=== PATIENT | female | born 1965 | race Caucasian/White ===

== ENCOUNTER 2021-03-24 08:51 | Outpatient (CLI) | payer BC, SELFPAY ==
--- NOTE | 2021-03-24 09:01 | ECG_ITS ---
Measurements Intervals [place] Rate: 63 P: 36 WA: 181 QRS: 54 QRSD: 80 T: 53 QT: 397 QTc: 407 Interpretive Statements SINUS RHYTHM DELAYED PRECORDIAL R/S TRANSITION BASELINE ARTIFACT- I, II, III, AVR, AVL, V5-V6 BORDERLINE ECG Electronically Signed On 03-24-2021 10:17:49 CDT by Jimy Chou D.O.
[2021-03-24 09:48] LABS: Hematocrit 38.5 % (37.0-47.0); Hemoglobin 12.7 g/dL (12.0-15.0)
== END 2021-03-24 08:52 | disposition home or self-care (01) ==
PROVIDERS: PCP Family Medicine; Visit Provider Obstetrics & Gynecology
DX: Z01.818 Encounter for other preprocedural examination (principal); N95.0 Postmenopausal bleeding
CPT/HCPCS: 36415; 85014; 85018; 93005

== ENCOUNTER → 2021-03-26 08:13 | Outpatient (CLI) | payer BC, SELFPAY ==
[2021-03-26 19:22] LABS: SARS-CoV-2 RNA PCR Negative
== END ==
PROVIDERS: PCP Family Medicine; Visit Provider Obstetrics & Gynecology
DX: Z01.812 Encounter for preprocedural laboratory examination (principal); Z20.822 Contact with and (suspected) exposure to COVID-19
CPT/HCPCS: C9803; U0003; U0005

== ENCOUNTER 2021-03-29 01:30 | Day surgery (SDC) | payer BC, SELFPAY ==
[2021-03-19 15:02] VITALS: BMI 29.2
--- NOTE | 2021-03-23 13:13 | PM.IMHP ---
H&P: HPI History of Present Illness Date/Time: 03/23/21 13:13 55-year-old 2 para 2 admitted for hysteroscopy and dilatation and curettage. This patient had an ultrasound ordered by her oncologist for unknown reasons but I suspect it was due to tamoxifen use. This showed her endometrial lining to measure 1.5cm which is thickened for a patient who is postmenopausal. She will undergo hysteroscopy dilatation and curettage. Risks and benefits reviewed in great detail Chief Complaint: postmenopausal bleeding Review of Systems Review of Systems: All systems reviewed & are unremarkable except as noted in HPI and below PMFSH Family History Family History Mother Hypertension Family history of malignant neoplasm of breast in first degree relative Other Family history of arthritis Family history of malignant neoplasm Family history of malignant neoplasm of kidney Family history of premature coronary heart disease Social History Social History Smoking status: Never smoker Second hand tobacco smoke exposure: No Alcohol intake: current Drinks per week: 1 Substance use: never Substance use type: does not use Gender identity (if verbalized by the patient): Female Spiritual care concerns: No Meds Home Medications and Allergies Home Medications Medication Instructions Recorded Confirmed Type betamethasone, augmented 0.05 % 1 applic TOPICAL DAILY PRN #45 gm 09/12/19 03/19/21 Rx topical ointment aspirin 81 mg tablet,delayed 81 mg PO DAILY 10/27/19 03/19/21 History release cetirizine 10 mg tablet 10 mg PO DAILY 10/27/19 03/19/21 History levothyroxine 150 mcg tablet 150 mcg PO DAILY 10/27/19 03/19/21 History magnesium 30 mg tablet 30 mg PO DAILY 10/27/19 03/19/21 History tamoxifen 20 mg tablet 20 mg PO DAILY 10/27/19 03/19/21 History valacyclovir 1 gram tablet See Rx Instructions .ROUTE 12/02/20 03/19/21 Rx .COMPLEX #4 tablet escitalopram oxalate 20 mg tablet 20 mg PO DAILY #30 tablet 12/31/20 03/19/21 Rx albuterol sulfate 90 mcg/actuation 1 inh INHALATION Q4H PRN #8.5 gm 01/29/21 03/19/21 Rx aerosol inhaler metoprolol tartrate 25 mg PO BID 03/19/21 03/19/21 History Allergies Allergy/AdvReac Type Severity Reaction Status Date / Time benzoin Allergy Unknown BLISTERS Verified 12/03/19 10:26 Exam Const: General: no acute distress Eyes: General: appearance normal, both eyes and all related structures Neck: Neck: supple and no JVD Thyroid: thyroid normal Resp: Effort & Inspection: normal respiratory effort Auscultation: clear to auscultation bilaterally Cardio: Rate: regular rate Rhythm: regular rhythm GI: Inspection: non-distended GI Palp: Yes Soft to palpation, No Tenderness to palpation present (GI) and No Guarding due to palpation present (GI) Auscultation: normal bowel sounds : External Female Exam: normal external appearance Speculum Exam - Vagina: normal appearance of the vagina Speculum Exam - Cervix: normal appearance of the cervix Bimanual exam- vagina & uterus: uterine shape normal and non-tender Skin: General skin exam: no rashes or lesions noted Extrem: General: normal to inspection and no edema Psych: Mental Status: mental status grossly normal Affect: normal affect Assessment and Plan Additional Plan impression: Thickened endometrium in a patient with history of tamoxifen use who is postmenopausal Plan: Hysteroscopy / dilatation and curettage
[2021-03-29 06:11] VITALS: BP 110/72; PULSE 57; RESP 16; TEMP 36.7; O2SAT 96
--- NOTE | 2021-03-29 06:33 | WPDHPUPDATE1 ---
History and Physical Update Update Date/Time: 03/29/21 06:33 History and Physical has been reviewed, including an updated exam of the patient. There are NO changes in the patient's condition. Risks, benefits, and alternatives have been discussed and questions answered. Patient agrees to proceed with procedure.
[2021-03-29] MEDS: LACTATED RINGERS 1,000 ML 30 ML IV CONT (06:45)
[2021-03-29] MEDS: ACETAMINOPHEN 500 MG TABLET 1000 MG PO (06:45)
--- NOTE | 2021-03-29 06:47 | WPDANESEPPF ---
Anes - Initial Pre Proc Eval Procedure: Operation Date: 03/29/21 07:30 Proposed Procedures p Hysteroscopy, Dilation and Curettage - Edson Castro MD Date/Time: 03/29/21 06:47 Surgeon: Edson Castro MD Pre Op Diagnosis: post menopausal bleeding, hx breast CA Patient Data Age: 55 Gender: F Height: 1.75 m Weight: 90 kg Allergies Allergy/AdvReac Type Severity Reaction Status Date / Time benzoin Allergy Unknown BLISTERS Verified 12/03/19 10:26 SURGICAL GLUE AdvReac Intermediate CHEMICAL Uncoded 03/29/21 06:29 BURN/BLISTERS/RASH Home Medications Medication Instructions Recorded Confirmed Type betamethasone, augmented 0.05 % 1 applic TOPICAL DAILY PRN #45 gm 09/12/19 03/19/21 Rx topical ointment aspirin 81 mg tablet,delayed 81 mg PO DAILY 10/27/19 03/29/21 History release cetirizine 10 mg tablet 10 mg PO DAILY 10/27/19 03/29/21 History levothyroxine 150 mcg tablet 150 mcg PO DAILY 10/27/19 03/29/21 History magnesium 30 mg tablet 30 mg PO DAILY 10/27/19 03/29/21 History tamoxifen 20 mg tablet 20 mg PO DAILY 10/27/19 03/19/21 History valacyclovir 1 gram tablet See Rx Instructions .ROUTE 12/02/20 03/19/21 Rx .COMPLEX #4 tablet escitalopram oxalate 20 mg tablet 20 mg PO DAILY #30 tablet 12/31/20 03/29/21 Rx albuterol sulfate 90 mcg/actuation 1 inh INHALATION Q4H PRN #8.5 gm 01/29/21 03/29/21 Rx aerosol inhaler metoprolol tartrate 25 mg PO BID 03/19/21 03/29/21 History hydrocodone-acetaminophen 1 tablet PO Q4H PRN #30 tablet 03/29/21 Rx Patient hx anesthesia problems: none Family hx anesthesia problems: none PMFSH Past Medical History Medical History (Updated 03/29/21 @ 06:48 by Ricki Solis DO) Hypothyroidism CALIXTO (obstructive sleep apnea) CPAP Tachy-jake syndrome Surgical History Surgical History (Updated 03/29/21 @ 06:48 by Ricki Solis DO) History of appendectomy History of cholecystectomy History of mastectomy Family History Family History Mother Hypertension Family history of malignant neoplasm of breast in first degree relative Other Family history of arthritis Family history of malignant neoplasm Family history of malignant neoplasm of kidney Family history of premature coronary heart disease Social History Social History Smoking status: Never smoker Second hand tobacco smoke exposure: No Alcohol intake: never Drinks per week: 1 Substance use: never Substance use type: does not use Living arrangements: with family Gender identity (if verbalized by the patient): Female Sexual Orientation (if Verbalized by the Patient): Straight or Heterosexual Spiritual care concerns: No Anes - Eval Final PreProcedure Day of Procedure 03/29/21 06:47 Patient weight: overweight Heart: regular rate and rhythm Lungs: clear to auscultation and normal air movement Airway: Mallampati scale class II Neurological: alert and oriented Last oral intake: >/= 8 hours ASA classification: III Emergent: no Anesthetic plan: proceed Anesthesia type and monitoring: general GIVS and standard monitoring Informed Consent: The patient's anesthetic plan and its attendant risks and benefits were discussed with the patient/family/POA. Questions were solicited and answers provided to the satisfaction of the patient/family/POA.
[2021-03-29] MEDS: KETOROLAC 30 MG/ML VIAL (*BKC) IV PUSH (07:40)
--- NOTE | 2021-03-29 07:51 | PM.PROC ---
Procedure Note - Detailed Date of procedure: 03/29/21 Pre-op diagnosis: post menopausal bleeding, hx breast CA Surgeon: Edson Castro MD Postop diagnosis: Post menopausal bleeding/breast cancer history/uterine polyp Procedure: Hysteroscopy/polypectomy/dilatation curettage Anesthesia: IV sedation and local EBL: 5cc Findings: A small uterine polyp and benign-appearing endometrium Complications: None Description of procedure: The patient was prepped and draped in the sterile fashion placed in dorsal lithotomy position. Under excellent IV sedation weighted speculum placed in posterior fornix of vagina. Anterior lip of the cervix grasped with a single-tooth tenaculum and 2.5cc of 1% xylocaine anesthesia placed at 2, 4, 8, 10:00 a.m. on the cervix. Uterus sounded to7.5cm. Serial dilatation with fragmented dilators performed followed by passage of the 5mm visualizing hysteroscope. Normal saline was used as visualizing medium. A small uterine polyp was seen and this was removed with the polyp forceps. The uterus was then scraped over the entire 360? until a good grating sound was heard. No further tissue group B removed. Instruments were withdrawn. All sponge, needle, instrument counts were correct. There were no immediate complications
[2021-03-29 07:55] VITALS: BP 96/61; PULSE 61; RESP 16; O2SAT 97
[2021-03-29 08:25] VITALS: BP 101/63; PULSE 63; RESP 16
[2021-03-29 08:55] VITALS: BP 115/67; PULSE 58; RESP 20
== END 2021-03-29 09:15 | disposition home or self-care (01) ==
PROVIDERS: PCP Family Medicine; Visit Provider Obstetrics & Gynecology
PROC: 0U5B8ZZ Destruction of Endometrium, Via Natural or Artificial Opening Endoscopic (ICD-10-PCS; CPT 58563; principal; 2021-03-29 07:30)
DX: N95.0 Postmenopausal bleeding (principal); N84.0 Polyp of corpus uteri; N71.1 Chronic inflammatory disease of uterus; G47.33 Obstructive sleep apnea (adult) (pediatric); E03.9 Hypothyroidism, unspecified; I49.5 Sick sinus syndrome; Z85.3 Personal history of malignant neoplasm of breast; Z79.810 Long term (current) use of selective estrogen receptor modulators (SERMs); Z79.51 Long term (current) use of inhaled steroids; Z79.82 Long term (current) use of aspirin
CPT/HCPCS: 58558; 36415; 85014; 85018; 88305; 93005; A9270; C9803; J1885; J2250; J2405; J2704; J3010; J7030; J7120; U0003; U0005

== ENCOUNTER → 2021-07-13 13:48 | Outpatient (CLI) | payer BC, SELFPAY ==
--- NOTE | ~2021-07-13 | XR_ITS ---
XR foot LT 2V 07/13/2021 14:08 INDICATION: Left foot pain PROCEDURE: 2 views left foot COMPARISON: No prior studies for comparison. FINDINGS: Fracture, dislocation or subluxation is not identified. Lisfranc joint intact. Small degene rative calcaneal enthesophyte. The soft tissues appear within normal limits. No foreign bodies are i dentified. IMPRESSION: 1: NO ACUTE BONE OR JOINT ABNORMALITY IDENTIFIED. Reviewed, dictated and finalized at location A.
== END ==
PROVIDERS: PCP Family Medicine; Visit Provider Nurse Practitioner Family
DX: M79.672 Pain in left foot (principal)
CPT/HCPCS: 73620

== ENCOUNTER 2021-10-04 09:21 | Outpatient (CLI) | payer BC, SELFPAY ==
--- NOTE | ~2021-10-04 | XR_ITS ---
EXAMINATION: XR elbow RT min 3V DATE: 10/04/2021 09:37 INDICATION: Right elbow injury and pain. TECHNIQUE: 4 views of right elbow were obtained. COMPARISON: None. FINDINGS: Bone alignment is normal. No fracture. Joint spaces are well maintained. There is an enthes ophyte at medial humeral epicondyle. There is an enthesophyte at olecranon. There is no elbow joint e ffusion. There is soft tissue swelling overlying the olecranon. IMPRESSION: 1. No fracture. Reviewed, dictated and finalized at location A. IR TABLE OPERATOR IMPRESSION: 1. No fracture.
== END 2021-10-04 09:22 | disposition home or self-care (01) ==
LOC: ANHIMG 09:25
PROVIDERS: PCP Family Medicine; Visit Provider Obstetrics & Gynecology
DX: M25.521 Pain in right elbow (principal)
CPT/HCPCS: 73080

== ENCOUNTER 2023-07-06 11:28 | Outpatient (CLI) | payer BC, SELFPAY ==
[2023-07-06 13:23] LABS: Hematocrit 40.5 % (37.0-47.0); Hemoglobin 13.2 g/dL (12.0-15.0)
== END 2023-07-06 11:29 | disposition home or self-care (01) ==
PROVIDERS: PCP Family Medicine; Visit Provider Obstetrics & Gynecology
DX: Z01.812 Encounter for preprocedural laboratory examination (principal); N95.0 Postmenopausal bleeding
CPT/HCPCS: 36415; 85014; 85018

== ENCOUNTER 2023-07-07 00:47 | Day surgery (SDC) | payer BC, SELFPAY ==
[2023-07-03 11:21] VITALS: BMI 29.1
--- NOTE | 2023-07-03 11:26 | PC.NURSE ---
Report to the Outpatient Waiting Room, entrance under the green pavilion located off [facility], at time 12:30 on date 07/07/23. Planned Procedure Time: 2:30. Time changes happen often and if your time is changed the preop area will call you the afternoon before. - You and your visitor will be asked to self-screen and do not enter if you have any COVID symptoms. - A mask is optional within the hospital at this time. Patients may have clear liquids (water, carbonated beverages, clear teas, apple juice) until 3 hours prior to surgery (11:30) with a maximum of 20 ounces. - No food from midnight until time of surgery Take the following medications with a SIP of water the morning of surgery: ESCITALOPRAM, LEVOTHYROXINE, METOPROLOL DO NOT STOP ANY OF YOUR OTHER PRESCRIPTION MEDICATIONS PRIOR TO SURGERY ?EXCEPT THE FOLLOWING Medications to discontinue per physician: N/A Date to take last dose: N/A Please no make-up, nail lao, hairspray, perfume, deodorant, or body powder the day of surgery. No jewelry (including any body piercings) or valuables the day of surgery, leave them at home. Please take a shower or bath the night before, or the morning of, surgery with an antibacterial soap. Wear comfortable, loose fitting clothing. - Jewelry must be removed prior to entering the operating room. Rings and piercings that are not removed may be cut off. - The hospital will not accept responsibility for valuables. - Please leave all valuables, including medications, at home the day of surgery. If you are going home after surgery, a licensed cattle driver must drive you home. - NO public transportation without another adult if you receive anesthesia. - We recommend that an adult stay with you for 24 hours following discharge. - We also recommend that you do not drive, make important decision, drink alcoholic beverages, or take any drugs that were not prescribed by your health care provider for at least 24 hours after your discharge time. Follow any additional instructions given to you from your surgeon. If you or anyone in your household have experienced Covid symptoms in the past week, please notify your surgeon or the nurse liaison at the phone number below for possible testing. Telephone instructions given to PT - BLAKE MERINO and asked if any additional questions and then verbalized understanding. Patient advised to call surgeon office or pre surgery nurse liaison [phone] if any additional questions.
--- NOTE | 2023-07-04 13:03 | PM.IMHP ---
H&P: HPI History of Present Illness Date/Time: 07/04/23 13:03 Chief Complaint: Postmenopausal bleeding Narrative: [age]-year-old female 2 para 2 some postmenopausal bleeding. She does stop tamoxifen and noticed some vaginal bleeding. She underwent ultrasound mildly thickened endometrium was seen. An lateral use of tamoxifen and a thickened endometrium she will undergo hysteroscopy as well as dilatation and curettage. Risks and benefits reviewed including but not exclusive of , aspiration pneumonia, bleeding, transfusion, perforation injury to bowel, bladder, ureters, or other internal organs with need for open laparotomy and repair. She received the ACOG handouts entitled hysteroscopy as well as dilatation and curettage respectively. She had all questions answered to her satisfaction. She asked to proceed PMFSH Past Medical History Medical History BMI 29.0-29.9,adult Hypothyroidism CALIXTO (obstructive sleep apnea) CPAP Tachy-jake syndrome Surgical History Surgical History History of appendectomy History of cholecystectomy History of mastectomy Family History Family History Mother Hypertension Family history of malignant neoplasm of breast in first degree relative Diabetes mellitus Father Acute myocardial infarction Tobacco abuse Sibling Hypertension Tobacco abuse Other Family history of arthritis Family history of malignant neoplasm Family history of malignant neoplasm of kidney Family history of premature coronary heart disease Social History Social History Smoking status: Never smoker Second hand tobacco smoke exposure: No Alcohol intake: current Drinks per week: 1 Substance use: never Substance use type: does not use Living arrangements: with family Gender identity (if verbalized by the patient): Female Sexual Orientation (if Verbalized by the Patient): Straight or Heterosexual Spiritual care concerns: No Meds Home Medications and Allergies Home Medications Medication Instructions Recorded Confirmed Type cetirizine 10 mg tablet (Zyrtec) 10 mg PO HS 10/27/19 07/03/23 History levothyroxine 150 mcg tablet 150 mcg PO DAILY 10/27/19 07/03/23 History (Synthroid) albuterol sulfate 90 mcg/actuation 1 inh inhalation Q4H PRN shortness 01/29/21 07/03/23 Rx aerosol inhaler (Ventolin HFA) of breath or wheezing #8.5 grams metoprolol tartrate 25 mg tablet 25 mg PO BID 03/19/21 07/03/23 History escitalopram oxalate 20 mg tablet 20 mg PO DAILY #90 tabs 06/02/23 07/03/23 Rx (Lexapro) trazodone 50 mg tablet 50 mg PO HS 07/03/23 07/03/23 History Allergies Allergy/AdvReac Type Severity Reaction Status Date / Time benzoin Allergy Unknown BLISTERS Verified 07/03/23 11:19 SURGICAL GLUE AdvReac Intermediate CHEMICAL Uncoded 07/03/23 11:19 BURN/BLISTERS/RASH Exam Const: General: cooperative, healthy appearing, comfortable and average body habitus Orientation/consciousness: oriented to person, oriented to place and oriented to time HENMT: Head: normal to inspection Resp: Effort & Inspection: normal respiratory effort Cardio: Rate: regular rate Rhythm: regular rhythm Heart sounds: S1 normal heart sound present and S2 normal heart sound present GI: Inspection: normal to inspection : External Female Exam: normal external appearance Speculum Exam - Vagina: normal appearance of the vagina Speculum Exam - Cervix: normal appearance of the cervix Bimanual exam- vagina & uterus: uterine size normal and non-tender Bimanual Exam- Adnexa, other: normal adnexae Assessment and Plan Assessment and plan (1) Postmenopausal bleeding: Code(s): N95.0 - Postmenopausal bleeding Status: Acute Plan Hysterosc
--- NOTE | 2023-07-06 15:03 | WPDANESEPPF ---
Anes - Initial Pre Proc Eval Procedure: Operation Date: 07/07/23 14:30 Proposed Procedures p Hysteroscopy Dilation and Curettage - Edson Jacobson MD Date/Time: 07/06/23 15:03 Surgeon: Edson Jacobson MD Pre Op Diagnosis: postmenopausal bleeding Patient Data Age: 58 Gender: F Height: 1.78 m Weight: 92.1 kg Allergies Allergy/AdvReac Type Severity Reaction Status Date / Time benzoin Allergy Unknown BLISTERS Verified 07/03/23 11:19 SURGICAL GLUE AdvReac Intermediate CHEMICAL Uncoded 07/03/23 11:19 BURN/BLISTERS/RASH Home Medications Medication Instructions Recorded Confirmed Type cetirizine 10 mg tablet (Zyrtec) 10 mg PO HS 10/27/19 07/03/23 History levothyroxine 150 mcg tablet 150 mcg PO DAILY 10/27/19 07/03/23 History (Synthroid) albuterol sulfate 90 mcg/actuation 1 inh inhalation Q4H PRN shortness 01/29/21 07/03/23 Rx aerosol inhaler (Ventolin HFA) of breath or wheezing #8.5 grams metoprolol tartrate 25 mg tablet 25 mg PO BID 03/19/21 07/03/23 History escitalopram oxalate 20 mg tablet 20 mg PO DAILY #90 tabs 06/02/23 07/03/23 Rx (Lexapro) trazodone 50 mg tablet 50 mg PO HS 07/03/23 07/03/23 History hydrocodone 5 mg-acetaminophen 325 1 tablet PO Q4H PRN pain #10 tabs 07/07/23 Rx mg tablet Patient hx anesthesia problems: none Family hx anesthesia problems: none Results Review: All pre-operative results and documents have been reviewed as part of the pre-operative evaluation. [facility] Past Medical History Medical History BMI 29.0-29.9,adult Hypothyroidism CALIXTO (obstructive sleep apnea) CPAP Tachy-jake syndrome Surgical History Surgical History History of appendectomy History of cholecystectomy History of mastectomy Family History Family History Mother Hypertension Family history of malignant neoplasm of breast in first degree relative Diabetes mellitus Father Acute myocardial infarction Tobacco abuse Sibling Hypertension Tobacco abuse Other Family history of arthritis Family history of malignant neoplasm Family history of malignant neoplasm of kidney Family history of premature coronary heart disease Social History Social History Smoking status: Never smoker Second hand tobacco smoke exposure: No Alcohol intake: current Drinks per week: 1 Substance use: never Substance use type: does not use Living arrangements: with family Gender identity (if verbalized by the patient): Female Sexual Orientation (if Verbalized by the Patient): Straight or Heterosexual Spiritual care concerns: No Anes - Eval Final PreProcedure Day of Procedure 07/06/23 15:03 Patient weight: overweight Heart: regular rate and rhythm Lungs: clear to auscultation Airway: Mallampati scale class II Neurological: alert and oriented Last oral intake: >/= 8 hours ASA classification: III Emergent: no Anesthetic plan: proceed Anesthesia type and monitoring: general GIVS and standard monitoring Results Review: All pre-operative results and documents have been reviewed as part of the pre-operative evaluation. Informed Consent: The patient's anesthetic plan and its attendant risks and benefits were discussed with the patient/family/POA. Questions were solicited and answers provided to the satisfaction of the patient/family/POA.
--- NOTE | 2023-07-07 06:58 | WPDHPUPDATE1 ---
History and Physical Update Update Date/Time: 07/07/23 06:58 History and Physical has been reviewed, including an updated exam of the patient. There are NO changes in the patient's condition. Risks, benefits, and alternatives have been discussed and questions answered. Patient agrees to proceed with procedure.
[2023-07-07 12:45] VITALS: BP 124/78; PULSE 56; RESP 16; TEMP 36.4; O2SAT 98; BMI 28.9
[2023-07-07] MEDS: LACTATED RINGERS 1,000 ML 30 ML IV CONT (13:05)
[2023-07-07] MEDS: ACETAMINOPHEN 500 MG TABLET 1000 MG PO (13:13)
[2023-07-07] MEDS: LIDOCAINE HCL 1% LOCAL INJ 20 ML VIAL 10 ML INFILTRATE (13:47)
--- NOTE | 2023-07-07 13:55 | W.PM.PROC2 ---
Procedure Note - Detailed Date of Procedure 07/07/23 Pre-op Diagnosis postmenopausal bleeding Post-op Diagnosis Same Procedure Performed Hysteroscopy/dilatation curettage Surgeon Edson Jacobson MD Anesthesia MAC and Local Indications 58-year-old female with the thickened endometrium seen on ultrasound imaging of 5mm. Findings Benign noncancerous appearing endometrium. Description of Procedure Patient was prepped draped in normal sterile fashion placed in the dorsal lithotomy position. Under excellent IV sedation weighted speculum placed in posterior fornix vagina. Anterior lip of the cervix grasped with single-tooth tenaculum. 2.5cc 1% xylocaine anesthesia placed at 2, 4, 8, 10:00 a.m. of the cervix. Uterus sounded to 6cm. Serial dilatation with fragmented dilators performed followed by passage of the 5mm visualizing hysteroscope using normal saline as visualizing medium. No abnormalities were seen. The uterus was scraped over the entire 360? revealing very little tissue as expected. The instruments were withdrawn and the patient went to recovery in satisfactory condition. All sponge, needle, instrument counts were correct. There were no immediate complications noted Estimated Blood Loss 5 Drains No Packing No Pathology Yes Complications No immediate complications Condition Stable Disposition PACU
[2023-07-07 13:57] VITALS: BP 113/70; PULSE 68; RESP 14; O2SAT 97
[2023-07-07 14:05] VITALS: BP 108/67; PULSE 56; RESP 16; O2SAT 96
[2023-07-07 14:20] VITALS: BP 152/70; PULSE 55; RESP 16; O2SAT 98
[2023-07-07 14:30] VITALS: BP 115/63; PULSE 52; RESP 16; O2SAT 98
[2023-07-07 15:00] VITALS: BP 119/71; PULSE 52; RESP 16; O2SAT 99
== END 2023-07-07 15:11 | disposition home or self-care (01) ==
PROVIDERS: PCP Family Medicine; Visit Provider Obstetrics & Gynecology
PROC: 0U5B8ZZ Destruction of Endometrium, Via Natural or Artificial Opening Endoscopic (ICD-10-PCS; CPT 58563; principal; 2023-07-07 14:30)
DX: N95.0 Postmenopausal bleeding (principal); E03.9 Hypothyroidism, unspecified; I49.5 Sick sinus syndrome; G47.33 Obstructive sleep apnea (adult) (pediatric); Z79.51 Long term (current) use of inhaled steroids
CPT/HCPCS: 58558; 36415; 85014; 85018; 88305; A9270; J2250; J2405; J2704; J3010; J7120

== ENCOUNTER 2023-12-29 13:51 | Emergency (ER) | payer BC, SELFPAY ==
--- NOTE | 2023-12-29 13:53 | ED.URI ---
HPI - URI/Sore Throat General Chief Complaint: Upper Respiratory Infection Stated Complaint: Dizzy and Cough Time Seen by Provider: 12/29/23 13:53 Source: patient Mode of arrival: ambulatory Limitations: no limitations History of Present Illness HPI Narrative: Patient is a 58-year-old female who presents with persistent cough has been present since . Patient was seen after [place] by primary and given Augmentin and Tessalon Perles. Patient states last few days the cough has been more persistent and feels like her lungs are full. Denies any fever, chills, nausea, vomiting, diarrhea, sore throat, congestion. Related Data Home Medications Medication Instructions Recorded Confirmed cetirizine 10 mg tablet (Zyrtec) 10 mg PO HS 10/27/19 12/29/23 levothyroxine 150 mcg tablet 150 mcg PO DAILY 10/27/19 12/29/23 (Synthroid) metoprolol tartrate 25 mg tablet 25 mg PO BID 03/19/21 12/29/23 trazodone 50 mg tablet 50 mg PO HS 07/03/23 12/29/23 Allergies Allergy/AdvReac Type Severity Reaction Status Date / Time benzoin AdvReac Intermediate BLISTERS Verified 12/29/23 14:24 SURGICAL GLUE AdvReac Intermediate CHEMICAL Uncoded 12/29/23 14:24 BURN/BLISTERS/RASH Review of Systems Review of Systems: All systems reviewed & are unremarkable except as noted in HPI and below Constitutional: Constitutional: Denies body ache(s), Denies chills, Denies fatigue, Denies fever(s), Denies headache(s), Denies malaise and Denies weakness Eyes: Eyes: Denies blurry vision, Denies itchy eyes and Denies loss of vision ENT: Denies otalgia, Denies headache(s), Denies nasal congestion, Denies sinus pain and Denies sore throat Cardiovascular: Cardiovascular: Denies chest pain, Denies irregular heart rhythm and Denies dyspnea Respiratory: Respiratory: Reports cough and Denies dyspnea Gastrointestinal: Gastrointestinal: Denies abdominal pain, Denies diarrhea, Denies nausea and Denies vomiting Musculoskeletal: Musculoskeletal: Denies back pain, Denies myalgias and Denies arthralgias Integumentary/Breasts: Skin/Breast: Denies pruritus and Denies rash Neurologic: Denies headache(s), Denies loss of vision and Denies weakness Psychiatric: Psychiatric: Reports no additional psychiatric complaints Endocrine: Endocrine: Denies fatigue Allergic/Immunologic: Allergic/Immunologic: Denies itchy eyes PMFSH Past Medical History Medical History BMI 29.0-29.9,adult BMI 30.0-30.9,adult Bronchitis Hypothyroidism CALIXTO (obstructive sleep apnea) CPAP Screening for thyroid disorder Sinusitis Tachy-jake syndrome Wellness examination Surgical History Surgical History History of appendectomy History of cholecystectomy History of mastectomy Family History Family History Mother Hypertension Family history of malignant neoplasm of breast in first degree relative Diabetes mellitus Father Acute myocardial infarction Tobacco abuse Sibling Hypertension Tobacco abuse Other Family history of arthritis Family history of malignant neoplasm Family history of malignant neoplasm of kidney Family history of premature coronary heart disease Social History Social History Smoking status: Never smoker Second hand tobacco smoke exposure: No Alcohol intake: current Drinks per week: 1 Substance use: never Substance use type: does not use Living arrangements: with family Gender identity (if verbalized by the patient): Female Sexual Orientation (if Verbalized by the Patient): Straight or Heterosexual Spiritual care concerns: No Comments At time of signature, agree with nursing past medical, surgical, social and family history. There is no relevant family history pertinent to the presenting c
[2023-12-29 14:18] VITALS: BP 140/84; PULSE 72; RESP 16; TEMP 36.3; O2SAT 97
== END 2023-12-29 14:51 | disposition home or self-care (01) ==
PROVIDERS: Emergency Provider Nurse Practitioner Family; PCP Family Medicine
DX: J20.9 Acute bronchitis, unspecified (principal); E03.9 Hypothyroidism, unspecified; G47.33 Obstructive sleep apnea (adult) (pediatric)
CPT/HCPCS: 99213; G0463

== ENCOUNTER 2024-02-15 10:40 | Outpatient (CLI) | payer BC, SELFPAY ==
[2024-02-15 11:28] LABS: Hematocrit 41.1 % (37.0-47.0); Hemoglobin 13.6 g/dL (12.0-15.0); Mean Corpuscular HGB Conc 33.1 g/dl (32-36); Mean Corpuscular Hemoglobin 30.1 pg (26-34); Mean Corpuscular Volume 90.9 fl (80-100); Platelet Count Result 273 k/mm3 (150-375); Red Blood Count 4.52 M/mm3 (4.2-5.4); Red Cell Distribution Width 12.9 % (11.5-14.5); White Blood Count 5.7 K/mm3 (4.5-10.0)
[2024-02-15 11:34] LABS: Appearance Urine Clear (Clear); Bacteria Urine Rare /hpf; Bilirubin Urine Negative (Negative); Blood Urine Trace (Negative); Color Urine Yellow (Yellow); Glucose Urine UA Negative (Negative); Ketones Urine Negative (Negative); Leukocyte Esterase Ur Trace LEU/UL (Negative); Nitrate Urine Negative (Negative); Non Pathogenic Casts 0-2; Protein Urine Negative (Negative); RBC Urine 0-2 /hpf (0-2); Specific Grav Ur 1.019 (1.001-1.035); Squamous Epithelial Cell Urine Moderate /hpf (Few); Urobilinogen Urine 0.2 mg/dL (<2.0); WBC Urine 0-5 /hpf (0-3)
[2024-02-15 11:39] LABS: Alanine Aminotransferase 28 U/L (6-35); Albumin Level 4.6 g/dL (3.5-5.1); Alkaline Phosphatase 91 U/L (38-126); Anion Gap 8 mmol/L (4-12); Aspartate Amino Transferase 27 U/L (14-36); Bilirubin,Total 1.1 mg/dL (0.2-1.3); Blood Urea Nitrogen 13 mg/dL (7-17); Calcium 10.1 mg/dL (8.4-10.2); Carbon Dioxide 27 mmol/L (22-30); Chloride 106 mmol/L (98-107); Estimated Glomerular Filt Rate > 60; Glucose 111 mg/dL (65-110); Potassium 4.3 mmol/L (3.4-5.0); Sodium 141 mmol/L (137-145)
[2024-02-15 11:43] LABS: Hemoglobin A1C 5.3 % (<5.7)
[2024-02-15 12:02] LABS: Add Urine Microscopic? YES
[2024-02-15 21:34] LABS: Free T4 Free Thyroxine Reflex 0.93 ng/dL (0.78-2.19)
[2024-02-15 23:18] LABS: Total Triiodothyronine (T3) 1.16 NG/ML (0.97-1.69)
== END 2024-02-15 10:41 | disposition home or self-care (01) ==
LOC: ANHLAB 10:41
PROVIDERS: PCP Family Medicine; Visit Provider Nurse Practitioner Adult Health
DX: Z00.00 Encounter for general adult medical examination without abnormal findings (principal); Z13.29 Encounter for screening for other suspected endocrine disorder; Z13.1 Encounter for screening for diabetes mellitus
CPT/HCPCS: 36415; 80053; 81001; 83036; 84439; 84443; 84480; 85027

== ENCOUNTER 2024-06-17 10:03 | Emergency (ER) | payer BC, SELFPAY ==
[2024-06-17 10:29] VITALS: BP 117/73; PULSE 51; RESP 18; TEMP 36.2; O2SAT 97
--- NOTE | 2024-06-17 10:44 | ED.URI ---
HPI - URI/Sore Throat General Chief Complaint: Upper Respiratory Infection Stated Complaint: sinus infection/covid symptoms Time Seen by Provider: 06/17/24 10:44 Source: patient, RN notes reviewed and old records reviewed Mode of arrival: ambulatory Limitations: no limitations History of Present Illness HPI Narrative: patient presents with complaints of 4-5 weeks of right-sided sinus pain and pressure. She reports that for a period of time she felt as though she was getting better, this is why she delayed treatment. She has been taking cetirizine and Flonase daily. She has been using her albuterol inhaler. She does have a cough associated with her sinus symptoms. She denies any wheezing. She denies fever, chills, sweats. She does admit to headache. She voices no other concerns or complaints today. Related Data Home Medications Medication Instructions Recorded Confirmed cetirizine 10 mg tablet (Zyrtec) 10 mg PO HS 10/27/19 06/17/24 metoprolol tartrate 25 mg tablet 25 mg PO BID 03/19/21 06/17/24 trazodone 50 mg tablet 50 mg PO HS 07/03/23 06/17/24 levothyroxine 150 mcg tablet 150 mcg PO DAILY 02/20/24 06/17/24 (Synthroid) multivit with minerals-iron 18 tablet PO 06/17/24 mg-folic ac 400 mcg-vit K 25 mcg tablet (Adults Multivitamin) Allergies Allergy/AdvReac Type Severity Reaction Status Date / Time benzoin Allergy Intermediate BLISTERS Verified 06/17/24 10:45 SURGICAL GLUE Allergy Intermediate CHEMICAL Uncoded 06/17/24 10:45 BURN/BLISTERS/RASH Review of Systems Review of Systems: All systems reviewed & are unremarkable except as noted in HPI and below Constitutional: Constitutional: Reports no additional constitutional complaints ENT: Reports system reviewed and no additional complaints, except as documented, Reports facial pain, Reports nasal discharge, Reports sinus pain and Reports sinus pressure Cardiovascular: Cardiovascular: Reports no additional cardiovascular complaints Respiratory: Respiratory: Reports no additional respiratory complaints and Reports cough Gastrointestinal: Gastrointestinal: Reports no additional gastrointestinal complaints PMFSH Past Medical History Medical History BMI 29.0-29.9,adult BMI 30.0-30.9,adult Bronchitis Hyperglycemia Hypothyroidism CALIXTO (obstructive sleep apnea) CPAP Screening for thyroid disorder Sinusitis Tachy-jake syndrome Wellness examination Surgical History Surgical History History of appendectomy History of cholecystectomy History of mastectomy Family History Family History Mother Hypertension Family history of malignant neoplasm of breast in first degree relative Diabetes mellitus Father Acute myocardial infarction Tobacco abuse Sibling Hypertension Tobacco abuse Other Family history of arthritis Family history of malignant neoplasm Family history of malignant neoplasm of kidney Family history of premature coronary heart disease Social History Social History Smoking status: Never smoker Second hand tobacco smoke exposure: No Alcohol intake: current Drinks per week: 1 Substance use: never Substance use type: does not use Living arrangements: with family Gender identity (if verbalized by the patient): Female Sexual Orientation (if Verbalized by the Patient): Straight or Heterosexual Spiritual care concerns: No Comments At the time of my signature, I reviewed and agree with the nursing past medical, surgical, social, and family history. There is no relevant family history pertinent to the patient complaint. Exam Const: General: cooperative, no acute distress, alert and awake Orientation/consciousness: oriented to person, oriented to place and oriented to time HE
== END 2024-06-17 11:00 | disposition home or self-care (01) ==
PROVIDERS: Emergency Provider Nurse Practitioner Family; PCP Family Medicine
DX: J01.10 Acute frontal sinusitis, unspecified (principal); E03.9 Hypothyroidism, unspecified; G47.33 Obstructive sleep apnea (adult) (pediatric)
CPT/HCPCS: 99213; G0463

== ENCOUNTER 2024-06-24 12:59 | Outpatient (CLI) | payer BC, SELFPAY ==
[2024-06-24 13:49] LABS: Alanine Aminotransferase 21 U/L (6-35); Albumin Level 4.4 g/dL (3.5-5.1); Alkaline Phosphatase 104 U/L (38-126); Anion Gap 10 mmol/L (4-12); Aspartate Amino Transferase 24 U/L (14-36); Bilirubin,Total 1.2 mg/dL (0.2-1.3); Blood Urea Nitrogen 14 mg/dL (7-17); Calcium 9.6 mg/dL (8.4-10.2); Carbon Dioxide 30 mmol/L (22-30); Chloride 99 mmol/L (98-107); Estimated Glomerular Filt Rate > 60; Glucose 94 mg/dL (65-110); Potassium 4.6 mmol/L (3.4-5.0); Sodium 139 mmol/L (137-145)
[2024-06-24 14:17] LABS: Thyroid Stimulating Hormone 0.604 uIU/mL (0.465-4.680)
[2024-06-24 15:13] LABS: Free T4 Free Thyroxine 1.41 ng/mL (0.78-2.19)
== END 2024-06-24 13:00 | disposition home or self-care (01) ==
LOC: ANHLAB 13:00
PROVIDERS: PCP Family Medicine; Visit Provider Nurse Practitioner Adult Health
DX: E03.9 Hypothyroidism, unspecified (principal); R73.9 Hyperglycemia, unspecified
CPT/HCPCS: 36415; 80053; 84439; 84443

== ENCOUNTER 2025-05-06 00:52 | Day surgery (SDC) | payer BC, SELFPAY ==
[2025-04-18 08:56] VITALS: BMI 30.9
--- OUTSIDE RECORDS SUMMARY | 2025-05-06 00:55 | XMS_ITS | Clinical Summary ---
Author Organization [address] Address [address] [place] [address] Care Team Providers Care Label Cutter Name Role Phone Ector Roger MD Primary Care Provider [phone] Tay Han MD Unavailable Bhavani Chavez MD PhD Unavaila ble Hortencia Rosado PhD Unavailable [phone] LeslyDhara MD Unavailable [phone] Allergies Active Allergy Reactions Criticality Noted Date Comments Adhesive Tape-Silicones Itching,Rash Medium 09/26/2018 Benzoin Itching,Rash Medium 04/13/2018 Medications cetirizine (ALL DAY ALLERGY, CETIRIZINE,) 10 mg capsule 10 mg. 0 0 5 Active Additional Information Patient taking differently:10 mgoral Daily, Reported on 03/25/2025 escitalopram (LEXAPRO) 20 mg tablet Take 1 tablet (20 mg total) by mouth daily 8 Active SYNTHROID 150 mcg tablet Take 1 tablet (150 mcg total) by mouth daily 8 Active albuterol HFA (PROVENTIL HFA,VENTOLIN HFA,PROAIR HFA) 90 mcg/actuation inhaler As needed. 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 06/05/2024 Encounter for screening mammogram for breast can cer 06/06/2022 Family history of breast cancer 11/30/2021 Obesity 11/12/2021 SVT (supraventricular tachycardia) 07/23/2021 Mixed hyperlipidemia 07/23/2021 Disorder of initiating and maintaining sleep 09/2020 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 Encounter for follow-up surveillance of breast c ancer 05/17/2018 Obesity, Class I, BMI 30-34.9 12/01/2016 Thyroid activity decreased 08/25/2016 Bronchial asthma 08/25/2016 Atrial septal defect 08/25/2016 Migraine with aura 08/25/2016 Episodic tension-type headache 08/25/2016 Atopic rhinitis 01/08/2015 Overview (02/09/2017): Nasal inflammation due to allergen Obstructive sleep apnea syndrome 01/08/2015 Overview (02/09/2017): Obstructive sleep apnea Repetitive intrusions of sleep 01/08/2015 Overview (02/09/2017): Intrusion, repetitive, of sleep Chest pain 08/19/2013 Palpitations 03/21/2011 Overview (02/15/2018): Description: Palpitations Resolved Problems Problem Noted Date Diagnosed Date Resolved Date Encounter for monitoring tamoxifen therapy 06/06/2022 06/05/2024 Prophylactic use of tamoxifen 06/06/2022 06/05/2024 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 Cardiology [address] [place] [address] [place] [address] Dima Tavares MD 04/08/2025 Telephone [facility] Oncology [address] [place] [address] Marialuisa Clement, [facility] 03/25/2025 11:30 AM CDT Office Visit [facility] Radiation Oncology [address] [place] [address] [place] [address] Iza Branham NP Ductal carcinoma in situ (DCIS) of right breast 03/25/2025 7:28 AM CDT - 03/25/2025 11:59 PM CDT Hospital Encounter [facility] Breast Imaging [facility] [address] [place] [address] Screening mammogram for breast cancer; Encounter for screening mammogram for breast cancer Discharge Disposition: Discharge to home or self care 03/25/2025 Results Follow-Up [facility] Oncology [address] [place] [address] Dhara Grace MD Screening Mammogram Bilateral W Pete from Last 3 Months Immunizations Immunization Administration Dates Next Due Influenza, Quadrivalent, Eden l Culture-based MDCK, Preservative Free, Antibiotic Free, Intramuscular 11/30/2021,10/18/2019,09/26/2018 Influenza, Unspecified 07/30/2016 Moderna SARS-CoV-2 Monovalen t Vaccination (12+ YRS) 03/02/2021,02/02/2021 Surgical History Surgery Date Site/Laterality Comments BLADDER SURGERY KNEE SURGERY SINUS SURGERY TONSILLECTOMY MN PARAVAGINAL DEFECT REPAIR OPEN ABDOMINAL APPR MN REPAIR RECTOCELE SEPARATE PROCEDURE MN CHOLECYSTECTOMY MN APPENDECTOMY MN SEPTOPLASTY/SUBMUCOUS RES ECJ W/WO CARTILAGE GRF BREAST BIOPSY 09/13/2018 Right BREAST LUMPECTOMY 01/04/2018 - 02/03/2018 Right Medical History Medical History Date Comments Depression Hypertension History of radiation therapy Family History Medical History Relation Name Comments Other Brother 1 Restless leg sy ndrome; Hypertension Brother 2 Other Daughter pectus; Coronary artery disease Father Heart attack Father Peripheral vascular disease Father Sudden Cardiac Father Stomach cancer Maternal Grandfather Breast cancer Mother Cancer Mother Diabetes type II Mother Hypertension Mother Endometrial cancer Neg Hx Ovarian cancer Neg Hx Thyroid cancer Neg Hx Relation Name Status Comments Brother 1 Brother 2 Daughter Father (Age 46) Maternal Grandfather Mother Alive Social History Tobacco Use Types Packs/Day Years Used Date Smoking Tobacco: Never Smokeless Tobacco: Never Tobacco Cessation:Counseling Given: Not Answered Alcohol Use Standard Drinks/Week Comments Yes 0 (1 standard drink = 0.6 oz pur e alcohol) occassionally AUDIT-C Answer Date Recorded Frequency of Alcohol Consumption Not on file 06/05/2024 Q2: How many drinks containi ng alcohol do you have on a typical day when you are drinking? 1 or 2 06/05/2024 Q3: How often do you have si x or more drinks on one occasion? 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 Gender Identity Female 07/26/2023 10:28 AM CDT Sexual Orientation Straight 02/28/2020 6: 58 AM CDT Obstetrics History Para Term AB IAB SAB Ectopic Multiple Livin g Live Births 2 2 2 Date Outcome GA Total Labor Labor/2nd/3rd Weight Sex Type Anes PTL Nisreen A1 A5 Name Clin Term Term Last Filed Vital Signs Vital Sign Reading Time Taken Comments Blood Pressure 108/74 12/31/2024 9:49 AM SUCKER MACHINE OPERATOR Pulse 64 12/31/2024 9:49 AM SUCKER MACHINE OPERATOR Temperature 36.8 C (98.2 F) 12/31/2024 9:49 AM SUCKER MACHINE OPERATOR Respiratory Rate 16 12/31/2024 9:49 AM SUCKER MACHINE OPERATOR Oxygen Saturation 96% 12/31/2024 9:49 AM SUCKER MACHINE OPERATOR Inhaled Oxygen Concentration - - Weight 100.1 kg (220 lb 11.2 oz) 03/25/2025 8:40 AM CDT Height 175.3 cm (5' 9) 12/31/2024 9:49 AM SUCKER MACHINE OPERATOR Body Mass Index 32.59 12/31/2024 9:49 AM SUCKER MACHINE OPERATOR Plan of Treatment Health Maintenance Due Date Last Done Comments Cervical Cancer Screening 1967 Colon Cancer Screening-Colonoscopy 1967 Depression Screening 1967 Hepatitis C Screening 1967 DTaP/Tdap/Td Vaccine (1 - Tdap) 1978 Hepatitis B Screening 1985 Regular Well Visit/Exam 18-64 1985 Pneumococcal vaccine <65 (1 of 2 - PCV) 1986 Zoster Vaccine (1 of 2) 2017 Covid-19 Vaccine (3 - 2023-2 5 season) 2024 03/02/2021, 02/02/2021 Influenza Vaccine (Season Ended) 2025 11/30/2021, 10/18/2019, 09/26/2018, Additional history exists Breast Cancer Screening-Mammogram 03/25/2026 03/25/2025, 03/19/2024, 03/28/2023, Additional history exists Procedures Procedure Name Priority Date/Time Associated Diagnosis Comments SCREENING MAMMOGRAM BILATERAL W PETE Schedule Routine, Read Routine (OP Routine) 03/25/2025 7:51 AM CDT Screening mammogram for breast cancer Encounter for screening mammogram for breast cancer from Last 3 Months Results * Screening Mammogram Bilateral W Pete (03/25/2025 7:51 AM CDT) Anatomical Region Laterality Modality Breast Bilateral Mammography Narrative 03/25/2025 5:01 PM CDT Mammogram Technique: Bilateral Digital Breast Tomosynthesis, Bilateral C-view 2D Screening mammogram. Views obtained: bilateral craniocaudal and bilateral mediolateral oblique. Computer Aided Detection was performed. Mammogram Findings: The present examination has been compared to prior imaging studies performed at [facility] on 02/16/2022, 03/28/2023 and 03/19/2024. There are scattered areas of fibroglandular density. There is no suspicious abnormality in either breast. Impression: There is no mammographic evidence of malignancy. Annual screening mammography is recommended. OVERALL FINAL ASSESSMENT: BI-RADS CATEGORY 1: Negative. Procedure Note Calista Josue MD - 03/25/2025 Mammogram Technique: Bilateral Digital Breast Tomosynthesis, Bilateral C-view 2D Screening mammogram. Views obtained: bilateral craniocaudal and bilateral mediolateral oblique. Computer Aided Detection was performed. Mammogram Findings: The present examination has been compared to prior imaging studies performed at [facility] on 02/16/2022, 03/28/2023 and 03/19/2024. There are scattered areas of fibroglandular density. There is no suspicious abnormality in either breast. Impression: There is no mammographic evidence of malignancy. Annual screening mammography is recommended. OVERALL FINAL ASSESSMENT: BI-RADS CATEGORY 1: Negative. Dhara Grace MD IMG MAMMO PROCEDURES Final Result from Last 3 Months Insurance [facility] ACCESS CHOICE ANTHEM ACCESS CHOICE ANTHEM ACCESS CHOICE ANTHEM ACCESS CHOICE Care Teams Label Cutter Relationship Specialty Start Date End Date Ector Roger MD PCP - General 01/08/15 Tay Han MD [address] [facility] [address] [place] [address] Radiation Oncologist Radiation Oncology 05/17/18 Bhavani Chavez MD PhD [address] [facility] [address] [place] [address] Surgeon Surgical Oncology 05/17/18 Hortencia Rosado, PhD [address] [facility] [address] [facility] [facility] [facility] [address] [facility] [address] [place] [address] Nurse Practitioner Radiation Oncology 05/22/19 Aristocrat RanchettesDhara weaver MD [address] [facility] [address] DIV MEDICAL ONCOLOGY, [address] [place] [address] Surgeon Breast Surgery 03/28/23
--- OUTSIDE RECORDS SUMMARY | 2025-05-06 00:55 | XMS_ITS ---
Author Organization [address] Address [address] [place] [address] Care Team Providers Care Network Security Engineer Name Role Phone Ector Roger MD Primary Care Provider [phone] Tay Han MD Unavailable Bhavani Chavez MD PhD Unavaila ble Hortencia Rosado PhD Unavailable [phone] AnadarkoDhara weaver MD Unavailable [phone] Active Problems Problem Noted Date Diagnosed Date [...] 08/19/2013 Palpitations 03/21/2011 Overview (02/15/2018): Description: Palpitations Current Treatment and Therapy Plans No current plan information found. Past Treatment and Therapy Plans No past plan information found. 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
--- OUTSIDE RECORDS SUMMARY | 2025-05-06 00:55 | XMS_ITS | Clinical Summary ---
Author Organization [facility] Address [address] [place] [address] Care Team Providers Care Press Set Up Name Role Phone Ector Roger MD Primary Care Provider [phone] Source Comments [facility],non-owned Affiliates and Associated Physician Practices is amultiple site organization consisting of ambulatory clinics and hospital sitesin [place], [place], [place] and [place]. This disclosure is being madepursuant to the Care Everywhere program and may not contain all information available regarding this patient. 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 Gender Identity Not on file Sexual Orientation Not on file Plan of Treatment Health Maintenance Due Date Last Done Comments COLOGUARD (AGES 45-75) - COL ON CA SCREENING 1967 COLON MONITORING 1967 COLONOSCOPY - COLON CA SCREENING 1967 CT COLONOGRAPHY - COLON CA SCREENING 1967 Colorectal Cancer Screening 1967 FIT - COLON CA SCREENING 1967 FLEX SIG - COLON CA SCREENING 1967 LIPID TESTING 1967 MAMMOGRAM 1967 HIV SCREENING 1982 HEPATITIS C SCREENING 06/27/1985 DTAP/TDAP/TD VACCINES (1 - Tdap) 1986 HEPATITIS B VACCINE (1 of 3 - 19+ 3-dose series) 1986 PAP SMEAR 1988 PNEUMOCOCCAL VACCINE 50+ (1 of 1 - PCV) 2017 ZOSTER VACCINE (1 of 2) 2017 COVID-19 VACCINE (2023-2 5 season) 2024 DEPRESSION SCREENING 11/06/2024 INFLUENZA VACCINE (Season Ended) 2025 11/29/19 22 HIB VACCINE Aged Out No longer eligi ble based on patient's age to complete this topic HPV VACCINE Aged Out No longer eligi ble based on patient's age to complete this topic MENINGOCOCCAL (Group B) VACC INE SHARED DECISION-MAKING Aged Out No longer eligibl e based on patient's age to complete this topic MENINGOCOCCAL GROUPS A/C/Y/W VACCINE Aged Out No longer eligible b ased on patient's age to complete this topic Insurance SELF PAY NO INSURANCE Member Subscriber Plan / Payer (Ef fective for All Dates) Name:Alisa Villalpando Member ID:Not on file Relation to Subscriber:Not on file Name:ALISA VILLALPANDO Subscriber ID:Not on file (Home) Address: [address] [place] [address] Payer ID:Not on file Group ID:Not on file Type:Self Pay Address: [place], [place] SELF PAY NO INSURANCE Member Subscriber Plan / Payer (Ef fective for All Dates) Name:Alisa Villalpando Member ID:Not on file Relation to Subscriber:Not on file Name:ALISA VILLALPANDO Subscriber ID:Not on file (Home) Address: [address] [place] [address] Payer ID:Not on file Group ID:Not on file Type:Self Pay Address: [place], [place] SELF PAY NO INSURANCE Member Subscriber Plan / Payer (Ef fective for All Dates) Name:Alisa Villalpando Member ID:Not on file Relation to Subscriber:Not on file Name:ALISA VILLALPANDO Subscriber ID:Not on file (Home) Address: [address] [place] [address] Payer ID:Not on file Group ID:Not on file Type:Self Pay Address: [place], [place] SELF PAY NO INSURANCE Member Subscriber Plan / Payer (Ef fective for All Dates) Name:Alisa Villalpando Member ID:Not on file Relation to Subscriber:Not on file Name:ALISA VILLALPANDO Subscriber ID:Not on file (Home) Address: [address] [place] [address] Payer ID:Not on file Group ID:Not on file Type:Self Pay Address: [place], [place] SELF PAY NO INSURANCE Member Subscriber Plan / Payer (Ef fective for All Dates) Name:Alisa Villalpando Member ID:Not on file Relation to Subscriber:Not on file Name:ALISA VILLALPANDO Subscriber ID:Not on file (Home) Address: [address] [place] [address] Payer ID:Not on file Group ID:Not on file Type:Self Pay Address: [place], [place] SELF PAY NO INSURANCE Member Subscriber Plan / Payer (Ef fective for All Dates) Name:Alisa Villalpando Member ID:Not on file Relation to Subscriber:Not on file Name:ALISA VILLALPANDO Subscriber ID:Not on file (Home) Address: [address] [place] [address] Payer ID:Not on file Group ID:Not on file Type:Self Pay Address: [place], [place] Care Teams Press Set Up Relationship Specialty Start Date End Date Ector Roger MD [address] [place] [address] PCP - General 09/19/12
--- OUTSIDE RECORDS SUMMARY | 2025-05-06 00:55 | XMS_ITS | Encounter Summary ---
Author Organization [facility] Address [address] [place] [address] Phone Care Team Providers Care Resistor Coater Name Role Phone Ector Roger MD Primary Care Provider [phone] Addison Giraldo MD Unavailable [phone] aTy Han MD Unavailable Bhavani Chavez MD PhD Unavaila ble Dennise Dugan TELEVISION PRODUCTION ASSISTANT Unavailable Hortencia Rosado PhD Unavailable [phone] Dhaar Grace MD Unavailable [phone] Encounter Details Date Type Department Care Team (Latest Contact Info) Description 06/26/2018 Orders Only [facility] Scanning, Provider Social History Tobacco Use Types Packs/Day Years Used Date Smoking Tobacco: Never Smokeless Tobacco: Never Alcohol Use Standard Drinks/Week Comments No 0 (1 standard drink = 0.6 oz pur e alcohol) Comments Unknown Sex and Gender Information Value Date Recorded Sex Assigned at Not on file Legal Sex Female 12:43 AM BUSINESS 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 Gender Identity Female 07/26/2023 10:28 AM CDT Sexual Orientation Straight 02/28/2020 6: 58 AM CDT documented as of this encounter Plan of Treatment Not on file documented as of this encounter Procedures Procedure Name Priority Date/Time Associated Diagnosis Comments SCAN - LABS 06/26/2018 documented in this encounter Results * SCAN - LABS (06/26/2018) us Provider Scanning Final Result documented in this encounter Visit Diagnoses Not on filedocumented in this encounter Care Teams Resistor Coater Relationship Specialty Start Date End Date Ector Roger MD PCP - General 01/08/15 Addison Giraldo MD [address] [place] [address] Medical Oncologist/Waste Elimination Medical Oncology 05/10/18 03/27/23 Tay Han MD [address] [place] [address] Radiation Oncologist Radiation Oncology 05/17/18 Bhavani Chavez MD PhD [address] [place] [address] Surgeon Surgical Oncology 05/17/18 Dennise Dugan NP [address] [place] [address] Referring Physician Medical Oncology 05/17/18 03/02/21 Hortencia Rosado, PhD [address] [place] [address] Nurse Practitioner Radiation Oncology 05/22/19 Dhara Grace MD [address] [facility] [address] DIV IM MEDICAL ONCOLOGY, [address] [place] [address] Surgeon Breast Surgery 03/28/23 documented as of this encounter
--- OUTSIDE RECORDS SUMMARY | 2025-05-06 00:55 | XMS_ITS | Encounter Summary ---
Author Organization [facility] Address [address] [place] [address] Phone Care Team Providers Care Preforms Laminator Name Role Phone Ector Roger MD Primary Care Provider Addison Giraldo MD Unavailable [phone] Tay Han MD Unavailable Bhavani Chavez MD PhD Unavaila ble Hortencia Rosado PhD Unavailable [phone] LeslyDhara MD Unavailable [phone] Encounter Details Date Type Department Care Team (Latest Contact Info) Description 05/18/2021 Orders Only [facility] Scanning, Provider Social History Tobacco Use Types Packs/Day Years Used Date Smoking Tobacco: Never Smokeless Tobacco: Never Alcohol Use Standard Drinks/Week Comments Yes 0 (1 standard drink = 0.6 oz pur e alcohol) occassionally Comments No Sex and Gender Information Value Date Recorded Sex Assigned at Not on file 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 Gender Identity Female 07/26/2023 10:28 AM CDT Sexual Orientation Straight 02/28/2020 6: 58 AM CDT documented as of this encounter Plan of Treatment Not on file documented as of this encounter Procedures Procedure Name Priority Date/Time Associated Diagnosis Comments SCAN - PATHOLOGY 05/18/2021 documented in this encounter Results * SCAN - PATHOLOGY (05/18/2021) us Provider Scanning Edited Result - Final documented in this encounter Visit Diagnoses Not on filedocumented in this encounter Care Teams Preforms Laminator Relationship Specialty Start Date End Date Ector Roger MD PCP - General 01/08/15 Addison Giraldo MD [address] [place] [address] Medical Oncologist/Whizzer Operator Medical Oncology 05/10/18 03/27/23 Tay Han MD [address] [facility] [address] [place] [address] Radiation Oncologist Radiation Oncology 05/17/18 Bhavani Chavez MD PhD [address] [place] [address] Surgeon Surgical Oncology 05/17/18 Hortencia Rosado, PhD [address] # LL [facility] [address] [place] [address] Nurse Practitioner Radiation Oncology 05/22/19 Dhara Grace MD [address] [facility] [address] DIV MEDICAL ONCOLOGY, [address] [place] [address] Surgeon Breast Surgery 03/28/23 documented as of this encounter
--- OUTSIDE RECORDS SUMMARY | 2025-05-06 00:55 | XMS_ITS | Encounter Summary ---
Author Organization [facility] Address [address] [place] [address] Phone Care Team Providers Care Music Grapher Name Role Phone Ector Roger MD Primary Care Provider [phone] Tay Han MD Unavailable Bhavani Chavez MD PhD Unavaila ble Hortencia Rosado PhD Unavailable SurpriseDhara weaver MD Unavailable [phone] Encounter Details Date Type Department Care Team (Late st Contact Info) Description 04/21/2025 Telephone [facility] Cardiology [address] [facility] Advanced Medicine 8th [place] [address] [place] [address] Dima Tavares MD [address] 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 Please re fax to [phone] * Telephone Encounter - Marisa Godoy - 04/21/2025 3:03 PM CDT This is complete * Telephone Encounter - Adore Dorsey - 04/21/2025 2:40 PM CDT [facility] End[facility] calling stating they need pt's 12/04/[address] report faxed to [facility] [phone] documented in this encounter Plan of Treatment Not on file documented as of this encounter Visit Diagnoses Not on filedocumented in this encounter Care Teams Music Grapher Relationship Specialty Start Date End Date Ector Roger MD PCP - General 01/08/15 Tay Han MD [address] [facility] [address] [place] [address] Radiation Oncologist Radiation Oncology 05/17/18 Bhavani Chavez MD PhD [address] [facility] # LL [facility] [address] [place] [address] Surgeon Surgical Oncology 05/17/18 Hortencia Rosado, PhD [address] [facility] # LL [facility] [address] [place] [address] Nurse Practitioner Radiation Oncology 05/22/19 Lesly, Dhara Smith MD [address] [facility] [address] DIV MEDICAL ONCOLOGY, [address] [place] [address] Surgeon Breast Surgery 03/28/23 documented as of this encounter
--- OUTSIDE RECORDS SUMMARY | 2025-05-06 00:55 | XMS_ITS | Encounter Summary ---
Author Organization [facility] Address [address] [place] [address] Phone Care Team Providers Care Social Welfare Administrator Name Role Phone Ector Roger MD Primary Care Provider Addison Giraldo MD Unavailable [phone] Tay Han MD Unavailable Bhavani Chavez MD PhD Unavaila ble Dennise Dugan BUSINESS LIAISON OFFICER Unavailable [phone] Hortencia Rosado PhD Unavailable [phone] Dhara Grace MD Unavailable [phone] Encounter Details Date Type Department Care Team (Latest Contact Info) Description 11/14/2016 Orders Only [facility] Scanning, Provider Social History Tobacco Use Types Packs/Day Years Used Date Smoking Tobacco: Never Alcohol Use Standard Drinks/Week Comments No 0 (1 standard drink = 0.6 oz pur e alcohol) Comments Unknown Sex and Gender Information Value Date Recorded Sex Assigned at Not on file Legal Sex Female 12:43 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 Gender Identity Female 07/26/2023 10:28 AM CDT Sexual Orientation Straight 02/28/2020 6: 58 AM CDT documented as of this encounter Plan of Treatment Not on file documented as of this encounter Procedures Procedure Name Priority Date/Time Associated Diagnosis Comments SCAN - LABS 11/14/2016 documented in this encounter Results * SCAN - LABS (11/14/2016) us Provider Scanning Final Result documented in this encounter Visit Diagnoses Not on filedocumented in this encounter Care Teams Social Welfare Administrator Relationship Specialty Start Date End Date Ector Roger MD PCP - General 01/08/15 Addison Giraldo MD [address] [place] [address] Medical Oncologist/Dryer Feeder Medical Oncology 05/10/18 03/27/23 Tay Han MD [address] LL [facility] [address] [place] [address] Radiation Oncologist Radiation Oncology 05/17/18 Bhavani Chavez MD PhD [address] LL [facility] [address] [place] [address] Surgeon Surgical Oncology 05/17/18 Dennise Dugan NP [address] LL [facility] [address] [place] [address] Referring Physician Medical Oncology 05/17/18 03/02/21 Hortencia Rosado, PhD [address] LL [facility] [address] [place] [address] Nurse Practitioner Radiation Oncology 05/22/19 Dhara Grace MD [address] DIV IM MEDICAL ONCOLOGY, [address] [place] [address] Surgeon Breast Surgery 03/28/23 documented as of this encounter
--- OUTSIDE RECORDS SUMMARY | 2025-05-06 00:55 | XMS_ITS | Referral Summary ---
Author Organization [address] Address [address] [place] [address] Care Team Providers Care Cigarette Inspector Name Role Phone Ector Roger MD Primary Care Provider [phone] Tay Han MD Unavailable Bhavani Chavez MD PhD Unavaila ble Hortencia Rosado PhD Unavailable [phone] Dhara Grace MD Unavailable [phone] Encounters Date Type Department Care Team Description 04/21/2025 Telephone [facility] Cardiology [address] [facility] 8th [place] [address] [place] [address] Dima Tavares MD 04/08/2025 Telephone [facility] Physicians [facility] Oncology [address] [place] [address] Marialuisa Clement, [facility] 03/25/2025 Results Follow-Up [facility] Oncology [address] [place] [address] Dhara Grace MD Screening Mammogram Bilateral W Pete 03/25/2025 11:30 AM CDT Office Visit [facility] Advanced Medicine Radiation Oncology [address] [facility] [place] [address] Iza Branham NP Ductal carcinoma in situ (DCIS) of right breast 03/25/2025 7:28 AM CDT - 03/25/2025 11:59 PM CDT Hospital Encounter [facility] Advanced [facility] Breast Imaging [facility] Advanced Medicine ([facility]) [address] [place] [address] Screening mammogram for breast cancer; Encounter for screening mammogram for breast cancer Discharge Disposition: Discharge to home or self care from Last 3 Months Allergies Active Allergy Reactions Criticality Noted Date [...] from 01/26/2018:Stage Unknown(pTis (DCIS), pNX, ER: Positive, CA: Positive, HER2: Negative) - Unsigned Breast mass seen on mammogram 12/25/2017 11/30/2021 Sleep apnea syndrome 08/25/2016 020 Short sleeper syndrome 01/08/201504/16 Overview (02/09/2017): Short sleeper Abnormal blood chemistry level 07/21/2011 07/29/2022 Immunizations Immunization Administration Dates Next Due Influenza, Quadrivalent, Eden l Culture-based MDCK, Preservative Free, Antibiotic Free, Intramuscular 11/30/2021,10/18/2019,09/26/2018 Influenza, Unspecified 07/30/2016 Moderna SARS-CoV-2 Monovalen t Vaccination (12+ YRS) 03/02/2021,02/02/2021 Social History Tobacco Use Types Packs/Day Years [...] on file Legal Sex Female 12:43 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 Gender Identity Female 07/26/2023 10:28 AM CDT Sexual Orientation Straight 02/28/2020 6: 58 AM CDT Last Filed Vital Signs Vital Sign Reading Time Taken Comments Blood Pressure 108/74 12/31/2024 9:49 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 Pulse 64 12/31/2024 9:49 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 Temperature 36.8 C (98.2 F) 12/31/2024 9:49 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 Respiratory Rate 16 12/31/2024 9:49 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 Oxygen Saturation 96% 12/31/2024 9:49 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 Inhaled Oxygen Concentration - - Weight 100.1 kg (220 lb 11.2 oz) 03/25/2025 8:40 AM CDT Height 175.3 cm (5' 9) 12/31/2024 9:49 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 Body Mass Index 32.59 12/31/2024 9:49 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 Plan of Treatment Not on file Procedures Procedure Name Priority Date/Time Associated Diagnosis [...] compared to prior imaging studies performed at [facility] on 02/16/2022, 03/28/2023 and 03/19/2024. There [...] compared to prior imaging studies performed at [facility] on 02/16/2022, 03/28/2023 and 03/19/2024. There are scattered areas of fibroglandular density. There is no suspicious abnormality in either breast. Impression: There is no mammographic evidence of malignancy. Annual screening mammography is recommended. OVERALL FINAL ASSESSMENT: BI-RADS CATEGORY 1: Negative. Dhara Grace MD IMG MAMMO PROCEDURES Final Result from Last 3 Months Insurance [facility] ACCESS CHOICE ANTHEM ACCESS CHOICE ANTHEM ACCESS CHOICE ANTHEM ACCESS CHOICE Care Teams Cigarette Inspector Relationship Specialty Start Date End Date Ector Roger MD PCP - General 01/08/15 Tay Han MD [address] LL [facility] [address] [place] [address] Radiation Oncologist Radiation Oncology 05/17/18 Bhaavni Chavez MD PhD [address] [place] [address] Surgeon Surgical Oncology 05/17/18 Hortencia Rosado, PhD [address] [place] [address] Nurse Practitioner Radiation Oncology 05/22/19 Dhara rGace MD [address] [facility] [address] DIV IM MEDICAL ONCOLOGY, [address] [place] [address] Surgeon Breast Surgery 03/28/23
--- OUTSIDE RECORDS SUMMARY | 2025-05-06 00:55 | XMS_ITS | Clinical Summary ---
Author Organization [facility] Address [facility] [place] [address] Care Team Providers Care Channel Executive Name Role Phone Unavailable Primary Care Provider Unavailabl e Social History Tobacco Use Types Packs/Day Years Used Date Smoking Tobacco: Never Assessed Comments Unknown Sex and Gender Information Value Date Recorded Sex Assigned at Not on file Legal Sex Female 6:16 PM CDT Gender Identity Not on file Sexual Orientation Not on file Plan of Treatment Health Maintenance Due Date Last Done Comments Cervical Cancer Screening Pa p Smear (Age 30 to 64) Every 3 Years 1967 Colorectal Cancer Screening Colonoscopy (10 Years) 1967 Annual Physical 1970 Hepatitis C 1985 DTaP, Tdap and Td Vaccines ( 1 - Tdap) 1986 Hepatitis B Vaccines (1 of 3 - 19+ 3-dose series) 1986 Cervical Cancer Screening Pa p with HPV Testing (Age 30 to 64) Every 5 Years 1997 Cervical Cancer Screening with HPV 1997 Mammogram Screening 2007 Pneumococcal Vaccine: 50+ Ye ars (1 of 1 - PCV) 2017 Zoster Vaccines (1 of 2) 2017 COVID-19 Vaccine (2023-2 5 season) 2024 Meningococcal B Vaccine Aged Out No l onger eligible based on patient's age to complete this topic Meningococcal Vaccine Aged Out No howie donna eligible based on patient's age to complete this topic RSV Immunizations Under 20 Months Aged Out No longer eligible based on patient's age to complete this topic
--- OUTSIDE RECORDS SUMMARY | 2025-05-06 00:55 | XMS_ITS | Encounter Summary ---
Author Organization [facility] Address [address] [facility] [place] [address] Care Team Providers Care Wharf Labourer Name Role Phone Ector Roger MD Primary Care Provider [phone] Encounter Details Date Type Department Care Team (Late st Contact Info) Description 05/24/2018 Lab Requisition [facility] Care [facility] Lab [address] [facility] [place] [address] Ector Roger MD [address] [place] [address] Social History Tobacco Use Types Packs/Day Years Used Date Smoking Tobacco: Never Assessed Comments Unknown Sex and Gender Information Value Date Recorded Sex Assigned at Not on file Legal Sex Female 6:32 PM CUSTOMER ACCOUNT ADMINISTRATOR Gender Identity Not on file Sexual Orientation Not on file documented as of this encounter Plan of Treatment Not on file documented as of this encounter Procedures Procedure Name Priority Date/Time Associated Diagnosis Comments DERMATOPATHOLOGY Routine 05/21/2018 12:0 0 AM CDT documented in this encounter Results * DERMATOPATHOLOGY (05/21/2018 12:00 AM CDT) Case Report Dermatopathology Report Case: [id number] Authorizing Provider: Ector Roger MD Collected: 05/21/2018 12:00 AM Pathologist: Niki Humphries MD Received: 05/24/2018 01:13 PM Specimen: Skin, right abbasi 8 10:28 AM CDT DERMATOPATHOLOGY LABORATORY Final Diagnosis Specimen A. SKIN, right abbasi: BENIGN VERRUCOUS KERATOSIS, INFLAMED (L82.1) PRESENT AT MARGIN 10:28 AM T DERMATOPATHOLOGY LABORATORY at 1028 CDT Clinical History Changing lesion. Check margins. 10:28 AM T DERMATOPATHOLOGY LABORATORY Gross Description Specimen A: Received is one formalin filled container labeled with the patient's name and designated right abbasi. The specimen consists of a punch biopsy measuring [id number]. Jar 0. 10:28 AM T DERMATOPATHOLOGY LABORATORY Microscopic Description Specimen A. SKIN, right abbasi: Sections show hyperkeratosis, papillomatosis, hypergranulosis, and acanthosis. Inflammatory cells are present within the dermis. These histological findings can be seen in a verruca vulgaris or a seborrheic keratosis. This lesion is present at the margin of the specimen. 10:28 AM T DERMATOPATHOLOGY LABORATORY Disclaimer An external and internal positive and negative controls are appropriate for the histochemical, immunohistochemical and immunofluorescence stain(s) in this case (if any), except where stated explicitly. The performance characteristics of the stain(s) cited in this report were developed and its performance characteristic determined by the Dermatopathology Laboratory at [facility]. These tests need not be, and therefore are not, approved by the [place] Food and Drug Administration. The tests are used for clinical purposes. Billing Codes Specimen Charges Stain Charges 74006 1 10:28 AM CDT DERMATOPATHOLOGY LABORATORY Embedded Images 10:28 AM T DERMATOPATHOLOGY LABORATORY Pathology/Cytolog y TISSUE SPECIMEN FROM SKIN / Unknown 05/21/2018 05/24/2018 1:13 PM CDT us Ector Roger MD LAB - PATHOLOGY/CYTOLOGY LAURENCEE NITZA Final Result DERMATOPATHOLOGY LABORATORY [facility] - Department of Dermatology [address] [facility], 5th [place] [address], [facility] [phone] documented in this encounter Visit Diagnoses Not on filedocumented in this encounter Care Teams Wharf Labourer Relationship Specialty Start Date End Date Ector Roger MD [address] [place] [address] PCP - General 09/19/12 documented as of this encounter
--- OUTSIDE RECORDS SUMMARY | 2025-05-06 00:55 | XMS_ITS | Encounter Summary ---
Author Organization [facility] Address [address] [place] [address] Phone Care Team Providers Care Freight Trucker Name Role Phone Ector Roger MD Primary Care Provider Tay Han MD Unavailable Bhavani Chavez MD PhD Unavaila ble Hortencia Rosado PhD Unavailable Dhara Grace MD Unavailable [phone] Encounter Details Date Type Department Care Team (Late st Contact Info) Description 03/25/2025 Results Follow-Up [facility] Oncology [address] [address] Dhara Grace MD [address] [place] [address] Screening Mammogram Bilateral W Pete Social History Tobacco Use Types Packs/Day Years [...] on file 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 Gender Identity Female 07/26/2023 10:28 AM CDT Sexual Orientation Straight 02/28/2020 6: 58 AM CDT documented as of this encounter Plan of Treatment Not on file documented as of this encounter Visit Diagnoses Not on filedocumented in this encounter Care Teams Freight Trucker Relationship Specialty Start Date End Date Ector Roger MD PCP - General 01/08/15 Tay Han MD [address] [facility] # LL [facility] [address] [place] [address] Radiation Oncologist Radiation Oncology 05/17/18 Bhavani Chavez MD PhD [address] [facility] [address] LL [facility] [address] [place] [address] Surgeon Surgical Oncology 05/17/18 Hortencia Rosado, PhD [address] [facility] [address] LL [facility] [address] [place] [address] Nurse Practitioner Radiation Oncology 05/22/19 Dhara Grace MD [address] [facility] [address] DIV MEDICAL ONCOLOGY, [facility] [address] [place] [address] Surgeon Breast Surgery 03/28/23 documented as of this encounter
[2025-05-06 08:50] VITALS: BP 109/72; PULSE 63; RESP 18; TEMP 36.4; O2SAT 96
[2025-05-06] MEDS: LACTATED RINGERS 1,000 ML 150 ML IV CONT (09:02)
--- NOTE | 2025-05-06 09:10 | WPDANESEPPF ---
Anes - Initial Pre Proc Eval Procedure: Operation Date: 05/06/25 10:00 Proposed Procedures p Screening Colonoscopy - Shon Saxena MD Date/Time: 05/06/25 09:10 Surgeon: Shon Saxena MD Pre Op Diagnosis: Personal history of colon polyps, unspecified Patient Data Age: 59 Gender: F Height: 1.78 m Weight: 96.5 kg Last Vital Signs Temp 36.4 C 05/06/25 08:50 Pulse 63 05/06/25 08:50 Resp 18 05/06/25 08:50 BP 109/72 05/06/25 08:50 Pulse Ox 96 05/06/25 08:50 O2 Del Method Room Air 05/06/25 08:50 Allergies Allergy/AdvReac Type Severity Reaction Status Date / Time benzoin Allergy Intermediate BLISTERS Verified 05/06/25 08:49 adhesive Allergy Rash Verified 05/06/25 08:49 Home Medications ?Medication ?Instructions ?Recorded ?Confirmed ?Type cetirizine 10 mg tablet (Zyrtec) 10 mg PO HS 10/27/19 04/18/25 History albuterol sulfate 90 mcg/actuation 1 inh inhalation Q4H PRN shortness 01/29/21 04/18/25 Rx aerosol inhaler (Ventolin HFA) of breath or wheezing #8.5 grams metoprolol tartrate 25 mg tablet 25 mg PO BID 03/19/21 04/18/25 History trazodone 50 mg tablet 50 mg PO HS 07/03/23 04/18/25 History inhalational spacing device #1 ea 12/29/23 04/18/25 Rx (Aerochamber MV spacer) levothyroxine 150 mcg tablet 150 mcg PO DAILY 02/20/24 04/18/25 History (Synthroid) multivit with minerals-iron 18 1 tablet PO DAILY 06/17/24 04/18/25 History mg-folic ac 400 mcg-vit K 25 mcg tablet (Adults Multivitamin) epinephrine 0.3 mg/0.3 mL 0.3 mg (0.3 mL) IM ONCE #2 ea 06/26/24 04/18/25 Rx injection, auto-injector (EpiPen 2-Zoltan) valacyclovir 1 gram tablet 2,000 mg (2 x 1 gram) PO Q12H #4 09/18/24 04/18/25 Rx (Valtrex) tabs escitalopram oxalate 20 mg tablet 20 mg PO DAILY #90 tabs 03/11/25 04/18/25 Rx (Lexapro) venlafaxine 25 mg tablet 25 mg PO DAILY #30 tabs 03/11/25 04/18/25 Rx ondansetron 4 mg disintegrating 4 mg PO Q6H PRN nausea and 05/05/25 Rx tablet vomiting #4 tabs Patient hx anesthesia problems: none Family hx anesthesia problems: none Results Review: All pre-operative results and documents have been reviewed as part of the pre-operative evaluation. [facility] Past Medical History Medical History Depressed Allergic reaction to bee sting Hyperglycemia Bronchitis Sinusitis Screening for thyroid disorder Wellness examination BMI 30.0-30.9,adult BMI 29.0-29.9,adult Hypothyroidism CALIXTO (obstructive sleep apnea) CPAP Tachy-jake syndrome Surgical History Surgical History History of mastectomy History of cholecystectomy History of appendectomy Family History Family History Mother Hypertension Family history of malignant neoplasm of breast in first degree relative Diabetes mellitus Father Acute myocardial infarction Tobacco abuse Sibling Hypertension Tobacco abuse Other Family history of arthritis Family history of malignant neoplasm Family history of malignant neoplasm of kidney Family history of premature coronary heart disease Social History Social History Smoking status: Never smoker Second hand tobacco smoke exposure: No Alcohol intake: current Drinks per week: 2 Substance use: never Substance use type: does not use Living arrangements: with family Gender identity (if verbalized by the patient): Female Sexual Orientation (if Verbalized by the Patient): Straight or Heterosexual Spiritual care concerns: No Anes - Eval Final PreProcedure Day of Procedure 05/06/25 09:10 Patient weight: obese Heart: regular rate and rhythm Lungs: clear to auscultation Airway: Mallampati scale class II Neurological: alert and oriented Last oral intake: >/= 8 hours ASA classification: III Emergent: no Anesthetic plan: proceed Anesthesia type and monitoring: general GIVS and standard monitoring Results Review: All pre-operative results and documents have been reviewed as part of the pre-operative evaluation. Informed Consent: The patient's anesthetic plan and its attendant risks and benefits were discussed with the patient/family/POA. Questions were solicited and answers provided to the satisfaction of the patient/family/POA.
--- NOTE | 2025-05-06 09:55 | PM.IMHP ---
H&P: HPI History of Present Illness Date/Time: 05/06/25 09:55 Chief Complaint: History of colon polyps Narrative: The patient has a history of colonic polyps, the last colonoscopy was 5 years ago. Review of Systems Review of Systems: All systems reviewed & are unremarkable except as noted in HPI and below PMFSH Past Medical History Medical History Depressed Allergic reaction to bee sting Hyperglycemia Bronchitis Sinusitis Screening for thyroid disorder Wellness examination BMI 30.0-30.9,adult BMI 29.0-29.9,adult Hypothyroidism [place] (obstructive sleep apnea) CPAP Tachy-jake syndrome Surgical History Surgical History History of mastectomy History of cholecystectomy History of appendectomy Family History Family History Mother Hypertension Family history of malignant neoplasm of breast in first degree relative Diabetes mellitus Father Acute myocardial infarction Tobacco abuse Sibling Hypertension Tobacco abuse Other Family history of arthritis Family history of malignant neoplasm Family history of malignant neoplasm of kidney Family history of premature coronary heart disease Social History Social History Smoking status: Never smoker Second hand tobacco smoke exposure: No Alcohol intake: current Drinks per week: 2 Substance use: never Substance use type: does not use Living arrangements: with family Gender identity (if verbalized by the patient): Female Sexual Orientation (if Verbalized by the Patient): Straight or Heterosexual Spiritual care concerns: No Meds Home Medications and Allergies Home Medications ?Medication ?Instructions ?Recorded ?Confirmed ?Type cetirizine 10 mg tablet (Zyrtec) 10 mg PO HS 10/27/19 04/18/25 History albuterol sulfate 90 mcg/actuation 1 inh inhalation Q4H PRN shortness 01/29/21 04/18/25 Rx aerosol inhaler (Ventolin HFA) of breath or wheezing #8.5 grams metoprolol tartrate 25 mg tablet 25 mg PO BID 03/19/21 04/18/25 History trazodone 50 mg tablet 50 mg PO HS 07/03/23 04/18/25 History inhalational spacing device #1 ea 12/29/23 04/18/25 Rx (Aerochamber MV spacer) levothyroxine 150 mcg tablet 150 mcg PO DAILY 02/20/24 04/18/25 History (Synthroid) multivit with minerals-iron 18 1 tablet PO DAILY 06/17/24 04/18/25 History mg-folic ac 400 mcg-vit K 25 mcg tablet (Adults Multivitamin) epinephrine 0.3 mg/0.3 mL 0.3 mg (0.3 mL) IM ONCE #2 ea 06/26/24 04/18/25 Rx injection, auto-injector (EpiPen 2-Zoltan) valacyclovir 1 gram tablet 2,000 mg (2 x 1 gram) PO Q12H #4 09/18/24 04/18/25 Rx (Valtrex) tabs escitalopram oxalate 20 mg tablet 20 mg PO DAILY #90 tabs 03/11/25 04/18/25 Rx (Lexapro) venlafaxine 25 mg tablet 25 mg PO DAILY #30 tabs 03/11/25 04/18/25 Rx ondansetron 4 mg disintegrating 4 mg PO Q6H PRN nausea and 05/05/25 Rx tablet vomiting #4 tabs Allergies Allergy/AdvReac Type Severity Reaction Status Date / Time benzoin Allergy Intermediate BLISTERS Verified 05/06/25 08:49 adhesive Allergy Rash Verified 05/06/25 08:49 Vital Signs Vital Signs - 24 hr 05/06/25 08:50 Temperature 97.6 F Pulse Rate 63 Respiratory Rate 18 Blood Pressure 109/72 Pulse Oximetry 96 Oxygen Delivery Room Air Exam Const: General: cooperative and healthy appearing Resp: Effort & Inspection: normal respiratory effort and able to speak in complete sentences Auscultation: clear to auscultation bilaterally Cardio: Rate: regular rate Rhythm: regular rhythm GI: Inspection: normal to inspection GI Palp: No No hepatosplenomegaly present Auscultation: normal bowel sounds Rectal Exam: deferred Skin: General skin exam: normal color Psych: Appearance: grossly normal Mental Status: mental status grossly normal Assessment and Plan Assessment and plan (1) Hx of colonic polyps: Code(s): Z86.0100 - Personal history of colon polyps, unspecified Status: Acute Assessment and Plan: The patient is deemed a good candidate for the procedure. Consent signed. Will proceed.
--- NOTE | 2025-05-06 10:14 | S_PTH ---
PATIENT: Alisa Villalpando LOC: [facility] U#:[id number] AGE/SX: 59/F ROOM: RE05/06/[address]: Shon Saxena MD : 1965 BED: DIS: 05/06/2025 SPEC #: [id number] RECD: 05/06/25 11:39 STATUS: KALEY REQ #: [id number] KALIA: 05/06/25 10:[address]: Shon Saxena DEPT: [facility] Surgical RECD BY: Alexandra Brown ENTERED: 05/06/25 11:39 SP TYPE: Surgical OTHR DR: Ector Roger MD Tissues: A - Colon Polypectomy B - Colon Polypectomy Procedures: Hematoxylin and Eosin Stain Gross and Microscopic Level 4
[2025-05-06 10:15] VITALS: BP 102/64; PULSE 63; RESP 15; O2SAT 97
[2025-05-06 10:25] VITALS: BP 111/65; PULSE 60; RESP 20; O2SAT 99
[2025-05-06 10:35] VITALS: BP 126/72; PULSE 62; RESP 15; O2SAT 100
== END 2025-05-06 10:51 | disposition home or self-care (01) ==
PROVIDERS: PCP Family Medicine; Referring Provider Physician Assistant Medical; Visit Provider Internal Medicine Gastroenterology
PROC: 0DJD8ZZ Inspection of Lower Intestinal Tract, Via Natural or Artificial Opening Endoscopic (ICD-10-PCS; CPT 45378; principal; 2025-05-06 10:00)
DX: Z12.11 Encounter for screening for malignant neoplasm of colon (principal); D12.2 Benign neoplasm of ascending colon; D12.3 Benign neoplasm of transverse colon; E66.9 Obesity, unspecified; Z68.30 Body mass index [BMI] 30.0-30.9, adult
CPT/HCPCS: 45385; 88305; J2704; J7120